=== PATIENT | male | born 1965 | race Caucasian/White ===

== ENCOUNTER 2017-03-04 22:29 | Emergency (ER) | payer OTHER | END 2017-03-05 00:50 | disposition home or self-care (01) | LOC: ER 22:29 | DX: M10.9 Gout, unspecified (principal); M79.671 Pain in right foot; W19.XXXA Unspecified fall, initial encounter; Y92.019 Unspecified place in single-family (private) house as the place of occurrence of the external cause; F17.220 Nicotine dependence, chewing tobacco, uncomplicated | CPT/HCPCS: 36415; 73630; 84550; 96372; 99283-25 ==